=== PATIENT | female | born 1960 | race Caucasian/White ===

== ENCOUNTER 2021-07-28 08:56 | Emergency (ER) | payer BC ==
[~2021-07-28] VITALS: Ht 167.6 cm; Wt 78.2 kg
[~2021-07-28 08:56] MED LIST: ASPIRIN 81M81 MG/TA2 PO; BACTRIM DS 8001 TAB PO; PYRIDIUM 100MG100 MG PO
[2021-07-28 09:13] VITALS: TEMP 97.7
[2021-07-28 10:30] VITALS: BP 120/73; PULSE 77
== END 2021-07-28 10:30 | disposition home or self-care (01) ==
LOC: COL.ER 08:56
DX: Z20.3 Contact with and (suspected) exposure to rabies (principal)

== ENCOUNTER 2021-08-11 16:00 | Outpatient (RCR) | payer BC ==
[2021-07-31 13:45] VITALS: BP 172/92; PULSE 81; TEMP 97.9
[2021-08-04 16:27] VITALS: BP 143/85; PULSE 85; TEMP 98.9
[~2021-08-11] VITALS: Ht 167.6 cm; Wt 80.0 kg
[2021-08-11 16:07] VITALS: BP 155/85; PULSE 77; TEMP 98.7
== END 2021-08-11 16:11 | disposition home or self-care (01) ==
LOC: EUO 16:00
DX: Z23 Encounter for immunization (principal); Z20.3 Contact with and (suspected) exposure to rabies